=== PATIENT | male | born 1950 | race African-American/Black ===

== ENCOUNTER 2016-07-26 15:28 | Emergency (ER) | payer OTHER, MEDICARE ==
[~2016-07-26] VITALS: Ht 175.3 cm; Wt 81.6 kg
[~2016-07-26 15:28] MED LIST: ASPIRIN EC325 MG PO; ASPIRIN325 MG PO; ATORVASTATIN CA80 MG PO; LIPITOR80 MG PO; LISINOPRIL40 MG PO; LO-DOSE ASPIRIN81 M1 PO; METOPROLOL TART25 MG PO; NICOTINE PATCH1 EAC1 TD; NITROSTAT0.4 MG SL; NORVASC10 MG PO; PLAVIX75 MG; PLAVIX75 MG PO; TOPROL XL25 MG PO; VALSARTAN-HCTZ1 EAC3 PO; ZESTORETIC 20-1 EAC1 NG; ZESTRIL20 MG PO
[2016-07-26 15:52] VITALS: BP 202/99
[2016-07-26] MEDS ORDERED: FLEXERIL10 MG PO (16:35)
[2016-07-26] MEDS ORDERED: PREDNISONE20 MG PO (16:35)
== END 2016-07-26 16:45 | disposition home or self-care (01) ==
LOC: EME 15:28
DX: M79.1 Myalgia (principal); V43.52XA Car driver injured in collision with other type car in traffic accident, initial encounter; E78.5 Hyperlipidemia, unspecified; I10 Essential (primary) hypertension; I25.2 Old myocardial infarction; Z87.442 Personal history of urinary calculi; Z72.0 Tobacco use
CPT/HCPCS: 99281; 99284; J7512

== ENCOUNTER 2016-08-11 15:02 | Emergency (ER) | payer OTHER, MEDICARE ==
[~2016-08-11] VITALS: Ht 175.3 cm; Wt 80.5 kg
[~2016-08-11 15:02] MED LIST changes: +FLEXERIL10 MG PO; +PREDNISONE20 MG PO
[2016-08-11 15:54] LABS: CHLORIDE 109 mEq/L (99-109); POTASSIUM 3.9 mEq/L (3.7-5.4); SODIUM 141 mEq/L (136-147)
[2016-08-11 15:55] LABS: MAGNESIUM 2.1 mg/dL (1.3-2.7)
[2016-08-11 15:56] LABS: GLUCOSE 89 mg/dL (70-99)
[2016-08-11 15:58] LABS: ANION GAP 11 MEQ/L (2-14)
[2016-08-11 16:00] LABS: GFR ESTIMATE (CALCULATED) 49 mL/min/
[2016-08-11 16:01] LABS: UREA NITROGEN (BUN) 19 mg/dL (9-23)
[2016-08-11] MEDS ORDERED: TRAMADOL HCL50 MG PO (16:10)
[2016-08-11] MEDS ORDERED: FLEXERIL5 MG PO (16:10)
[2016-08-11 16:17] VITALS: BP 166/98
== END 2016-08-11 16:18 | disposition home or self-care (01) ==
LOC: EME 15:02
PROVIDERS: Physician Assistant
DX: M54.16 Radiculopathy, lumbar region (principal); S39.92XA Unspecified injury of lower back, initial encounter; V89.2XXD Person injured in unspecified motor-vehicle accident, traffic, subsequent encounter
CPT/HCPCS: 80048; 83735; 99281; 99283